=== PATIENT | female | born 1945 | race Two or more races ===

== ENCOUNTER 2021-10-22 13:15 | Inpatient (IN) | payer MEDICARE, OTHER ==
[~2021-10-22] VITALS: Ht 165.1 cm; Wt 57.2 kg
[2021-10-22] MEDS ORDERED: ATOR20TA PO (22:33)
[2021-10-22] MEDS ORDERED: BISA-79 RC (22:36)
[2021-10-22] MEDS ORDERED: ESOM40CA PO (22:37)
[2021-10-22] MEDS ORDERED: FLUO20CA42 PO (22:38)
[2021-10-22] MEDS ORDERED: MELA5TAB PO (22:40)
[2021-10-22] MEDS ORDERED: ARMO150T2 PO (22:41)
[2021-10-22] MEDS ORDERED: POLY17PO4 PO (22:44)
[2021-10-22] MEDS ORDERED: SENN-261 PO (22:46)
[2021-10-22] MEDS ORDERED: MONT10TA22 PO (22:47)
[2021-10-22 22:52] VITALS: BP 112/72
[2021-10-22] MEDS ORDERED: SUMA1TAB PO (22:52)
[2021-10-22] MEDS ORDERED: TAMS-12 PO (22:53)
[2021-10-22] MEDS ORDERED: TIMO5DRO31 OP (22:55)
[2021-10-22] MEDS ORDERED: VALA100026 PO (22:57)
[2021-10-22] MEDS ORDERED: CHOL200010 PO (23:00)
[2021-10-22] MEDS ORDERED: IBUP-1957 PO (23:01)
[2021-10-22] MEDS ORDERED: OLAN2.5T3 PO (23:15)
[2021-10-22] MEDS ORDERED: OLAN5TAB3 PO ×2 (23:15)
[2021-10-22] MEDS ORDERED: MAGNESIUM HYDROXIDE 30 ML UDC PO PRN (23:30)
[2021-10-22] MEDS ORDERED: Medication Not On Formulary EA (Melatonin 1 TAB) PO PRN (23:30)
[2021-10-22] MEDS ORDERED: MAG HYDROX/AL HYDROX/SIMETH 30 ML UDC PO PRN (23:30)
[2021-10-22] MEDS ORDERED: BISACODYL (5 MG) 5 MG TABLET.DR PO PRN (23:30)
[2021-10-22] MEDS ORDERED: IBUPROFEN 800 MG TABLET PO PRN (23:30)
[2021-10-22] MEDS ORDERED: BLOOD SUGAR DIAGNOSTIC 1 EACH STRIP IN ONE (23:30)
[2021-10-22] MEDS ORDERED: [UNRECOGNIZED DRUG - OTHER] PO PRN (23:30)
[2021-10-22] MEDS ORDERED: SUMATRIPTAN SUCC PO PRN (23:30)
[2021-10-22] MEDS ORDERED: LORAZEPAM 0.5 MG TABLET PO PRN (23:30)
[2021-10-22] MEDS ORDERED: NAPROXEN SOD PO PRN (23:30)
[2021-10-23 06:51] LABS: BASOPHILS % (AUTO) 0.9 % (0.0-2.0); EOSINOPHILS % (AUTO) 2.8 % (0.0-6.0); HEMATOCRIT 36 % (33-45); LYMPHOCYTES # (AUTO) 1.6 K/uL (0.8-4.8); LYMPHOCYTES % (AUTO) 31.4 % (20.0-44.0); MEAN CORPUSCULAR HGB CONC 33 g/dl (31.0-36.0); MEAN CORPUSCULAR VOLUME 93 fL (82-100); MONOCYTES # (AUTO) 0.5 K/uL (0.1-1.30); MONOCYTES % (AUTO) 10.5 % (2.0-12.0); NEUTROPHILS # (AUTO) 2.8 K/uL (1.8-8.9); NEUTROPHILS % (AUTO) 54.4 % (43.0-81.0); PLATELET COUNT (AUTO) 261 K/uL (150-450); RED BLOOD CELL COUNT(AUTO) 3.87 MIL/uL (4.0-5.2); WHITE BLOOD COUNT (AUTO) 5.1 K/uL (4.3-11.0)
[2021-10-23 07:12] LABS: CALCIUM, SERUM 9.6 mg/dL (8.5-10.1); CREATININE 0.7 mg/dL (0.6-1.3)
[2021-10-23 08:00] VITALS: BP 120/69
[2021-10-23] MEDS: CHOLECALCIFEROL 1,000 UNIT TABLET (VIT D3) PO SCH (08:03)
[2021-10-23] MEDS: VALACYCLOVIR HCL 500 MG TABLET PO SCH (08:03)
[2021-10-23] MEDS: SENNOSIDES 8.6 MG TABLET PO SCH ×2 (08:03→17:31)
[2021-10-23] MEDS: PANTOPRAZOLE 40 MG TABLET.DR PO SCH ×2 (08:03→17:32)
[2021-10-23] MEDS: POLYETHYLENE GLYCOL 3350 17 GM POWD.PACK PO SCH ×2 (08:04→17:32)
[2021-10-23] MEDS: ENSURE ENLIVE 237 ML LIQUID (VANILLA) PO SCH ×2 (09:00→17:30)
[2021-10-23] MEDS ORDERED: Medication Not On Formulary EA (Armodafinil (Nuvigil) 1 TAB) PO SCH (09:00)
[2021-10-23] MEDS: FLUOXETINE HCL 20 MG CAPSULE PO SCH (10:42)
[2021-10-23] MEDS ORDERED: LORAZEPAM 0.5 MG TABLET PO PRN (11:30)
[2021-10-23 16:00] VITALS: BP 135/72
[2021-10-23] MEDS: MONTELUKAST SODIUM (10MG) 10 MG TABLET PO SCH (17:31)
[2021-10-23] MEDS: ATORVASTATIN 10 MG TABLET PO SCH (17:33)
[2021-10-23] MEDS: TAMSULOSIN 0.4 MG CAP.SR.24H PO SCH (21:11)
[2021-10-23] MEDS: OLANZAPINE 5 MG TABLET PO SCH (21:11)
[2021-10-23] MEDS: TIMOLOL 0.5% SOLN OPHTH 5 ML BOTTLE EACHEYE SCH ×2 (21:11→22:00)
[2021-10-23] MEDS ORDERED: ASPIRIN/ACETAMINOPHEN/CAFFEINE 1 EACH TABLET PO PRN (22:30)
[2021-10-23] MEDS: TEMAZEPAM 7.5 MG CAPSULE PO PRN (22:46)
[2021-10-24] MEDS: PANTOPRAZOLE 40 MG TABLET.DR PO SCH ×2 (07:34→17:26)
[2021-10-24 08:00] VITALS: BP 101/68
[2021-10-24] MEDS: ENSURE ENLIVE 237 ML LIQUID (VANILLA) PO SCH ×2 (08:20→17:24)
[2021-10-24] MEDS: FLUOXETINE HCL 20 MG CAPSULE PO SCH (08:23)
[2021-10-24] MEDS: VALACYCLOVIR HCL 500 MG TABLET PO SCH (08:23)
[2021-10-24] MEDS: SENNOSIDES 8.6 MG TABLET PO SCH ×2 (08:23→17:26)
[2021-10-24] MEDS: CHOLECALCIFEROL 1,000 UNIT TABLET (VIT D3) PO SCH (08:23)
[2021-10-24] MEDS: POLYETHYLENE GLYCOL 3350 17 GM POWD.PACK PO SCH ×2 (08:23→17:00)
[2021-10-24 16:00] VITALS: BP 139/76
[2021-10-24] MEDS: MONTELUKAST SODIUM (10MG) 10 MG TABLET PO SCH (17:26)
[2021-10-24] MEDS: ATORVASTATIN 10 MG TABLET PO SCH (17:27)
[2021-10-24 20:00] VITALS: BP 130/70
[2021-10-24] MEDS: OLANZAPINE 5 MG TABLET PO SCH (21:05)
[2021-10-24] MEDS: TAMSULOSIN 0.4 MG CAP.SR.24H PO SCH (21:05)
[2021-10-24] MEDS: TIMOLOL 0.5% SOLN OPHTH 5 ML BOTTLE EACHEYE SCH (21:06)
[2021-10-25] MEDS: PANTOPRAZOLE 40 MG TABLET.DR PO SCH ×2 (06:48→17:13)
[2021-10-25 08:00] VITALS: BP 116/64
[2021-10-25] MEDS: ENSURE ENLIVE 237 ML LIQUID (VANILLA) PO SCH ×2 (08:50→17:13)
[2021-10-25] MEDS: SENNOSIDES 8.6 MG TABLET PO SCH ×2 (08:52→17:14)
[2021-10-25] MEDS: POLYETHYLENE GLYCOL 3350 17 GM POWD.PACK PO SCH ×2 (08:52→17:00)
[2021-10-25] MEDS: VALACYCLOVIR HCL 500 MG TABLET PO SCH (08:53)
[2021-10-25] MEDS: CHOLECALCIFEROL 1,000 UNIT TABLET (VIT D3) PO SCH (08:53)
[2021-10-25] MEDS: FLUOXETINE HCL 20 MG CAPSULE PO SCH (08:55)
[2021-10-25 16:00] VITALS: BP 127/89
[2021-10-25] MEDS: ATORVASTATIN 10 MG TABLET PO SCH (19:11)
[2021-10-25] MEDS: MONTELUKAST SODIUM (10MG) 10 MG TABLET PO SCH (19:11)
[2021-10-25 20:00] VITALS: BP 121/68
[2021-10-25] MEDS: OLANZAPINE 5 MG TABLET PO SCH (21:09)
[2021-10-25] MEDS: TAMSULOSIN 0.4 MG CAP.SR.24H PO SCH (21:09)
[2021-10-25] MEDS: TIMOLOL 0.5% SOLN OPHTH 5 ML BOTTLE EACHEYE SCH (21:15)
[2021-10-26] MEDS: ACETAMINOPHEN 325 MG TABLET PO PRN ×2 (05:08→10:54)
[2021-10-26 08:00] VITALS: BP 126/64
[2021-10-26] MEDS: FLUOXETINE HCL 20 MG CAPSULE PO SCH (08:28)
[2021-10-26] MEDS: VALACYCLOVIR HCL 500 MG TABLET PO SCH (08:29)
[2021-10-26] MEDS: CHOLECALCIFEROL 1,000 UNIT TABLET (VIT D3) PO SCH (08:29)
[2021-10-26] MEDS: PANTOPRAZOLE 40 MG TABLET.DR PO SCH ×2 (08:29→17:12)
[2021-10-26] MEDS: SENNOSIDES 8.6 MG TABLET PO SCH ×3 (08:29→17:00)
[2021-10-26] MEDS: POLYETHYLENE GLYCOL 3350 17 GM POWD.PACK PO SCH ×3 (08:29→17:00)
[2021-10-26] MEDS: ENSURE ENLIVE 237 ML LIQUID (VANILLA) PO SCH ×2 (08:29→17:12)
[2021-10-26] MEDS: ATORVASTATIN 10 MG TABLET PO SCH (17:12)
[2021-10-26] MEDS: MONTELUKAST SODIUM (10MG) 10 MG TABLET PO SCH (17:12)
[2021-10-26] MEDS: IBUPROFEN 400 MG TABLET PO PRN (17:16)
[2021-10-26 19:43] VITALS: BP 142/63
[2021-10-26] MEDS: TIMOLOL 0.5% SOLN OPHTH 5 ML BOTTLE EACHEYE SCH (21:06)
[2021-10-26] MEDS: TAMSULOSIN 0.4 MG CAP.SR.24H PO SCH (21:06)
[2021-10-26] MEDS: OLANZAPINE 5 MG TABLET PO SCH (21:06)
[2021-10-27] MEDS: PANTOPRAZOLE 40 MG TABLET.DR PO SCH ×2 (06:31→17:29)
[2021-10-27 08:00] VITALS: BP 134/65
[2021-10-27] MEDS: ENSURE ENLIVE 237 ML LIQUID (VANILLA) PO SCH ×2 (08:16→17:35)
[2021-10-27] MEDS: CHOLECALCIFEROL 1,000 UNIT TABLET (VIT D3) PO SCH (08:21)
[2021-10-27] MEDS: FLUOXETINE HCL 20 MG CAPSULE PO SCH (08:21)
[2021-10-27] MEDS: POLYETHYLENE GLYCOL 3350 17 GM POWD.PACK PO SCH ×2 (08:22→17:00)
[2021-10-27] MEDS: SENNOSIDES 8.6 MG TABLET PO SCH ×2 (08:22→17:00)
[2021-10-27] MEDS: VALACYCLOVIR HCL 500 MG TABLET PO SCH (08:22)
[2021-10-27] MEDS: ATORVASTATIN 10 MG TABLET PO SCH (17:29)
[2021-10-27] MEDS: MONTELUKAST SODIUM (10MG) 10 MG TABLET PO SCH (17:29)
[2021-10-27 20:00] VITALS: BP 124/63
[2021-10-27] MEDS: TIMOLOL 0.5% SOLN OPHTH 5 ML BOTTLE EACHEYE SCH (21:05)
[2021-10-27] MEDS: OLANZAPINE 5 MG TABLET PO SCH (21:07)
[2021-10-27] MEDS: TAMSULOSIN 0.4 MG CAP.SR.24H PO SCH (21:07)
[2021-10-28] MEDS: IBUPROFEN 400 MG TABLET PO PRN ×2 (06:59→13:14)
[2021-10-28] MEDS: PANTOPRAZOLE 40 MG TABLET.DR PO SCH ×2 (07:30→17:05)
[2021-10-28 08:00] VITALS: BP 114/56
[2021-10-28] MEDS: VALACYCLOVIR HCL 500 MG TABLET PO SCH (08:51)
[2021-10-28] MEDS: FLUOXETINE HCL 20 MG CAPSULE PO SCH (08:51)
[2021-10-28] MEDS: CHOLECALCIFEROL 1,000 UNIT TABLET (VIT D3) PO SCH (08:51)
[2021-10-28] MEDS: SENNOSIDES 8.6 MG TABLET PO SCH ×2 (08:52→17:00)
[2021-10-28] MEDS: ENSURE ENLIVE 237 ML LIQUID (VANILLA) PO SCH ×2 (08:52→17:05)
[2021-10-28] MEDS: POLYETHYLENE GLYCOL 3350 17 GM POWD.PACK PO SCH ×2 (08:52→17:00)
[2021-10-28 16:00] VITALS: BP 144/75
[2021-10-28] MEDS ORDERED: BENZONATATE 100 MG CAPSULE PO PRN (16:30)
[2021-10-28] MEDS: ATORVASTATIN 10 MG TABLET PO SCH (17:05)
[2021-10-28] MEDS: MONTELUKAST SODIUM (10MG) 10 MG TABLET PO SCH (17:05)
[2021-10-28 20:00] VITALS: BP 139/66
[2021-10-28 20:35] VITALS: BP 139/66
[2021-10-28] MEDS: TAMSULOSIN 0.4 MG CAP.SR.24H PO SCH (21:23)
[2021-10-28] MEDS: TIMOLOL 0.5% SOLN OPHTH 5 ML BOTTLE EACHEYE SCH (21:23)
[2021-10-28] MEDS: OLANZAPINE 5 MG TABLET PO SCH (21:24)
[2021-10-28] MEDS: TEMAZEPAM 7.5 MG CAPSULE PO PRN (23:44)
[2021-10-28] MEDS: ACETAMINOPHEN 325 MG TABLET PO PRN (23:51)
[2021-10-29] MEDS: GUAIFENESIN/D-METHORPHAN HB 5 ML UDC PO PRN ×3 (00:22→18:43)
[2021-10-29] MEDS: PANTOPRAZOLE 40 MG TABLET.DR PO SCH ×2 (06:44→16:32)
[2021-10-29 06:49] LABS: CALCIUM, SERUM 8.8 mg/dL (8.5-10.1); CREATININE 0.8 mg/dL (0.6-1.3); POTASSIUM 3.8 mmol/L (3.5-5.1)
[2021-10-29 07:00] LABS: BASOPHILS % (AUTO) 0.6 % (0.0-2.0); EOSINOPHILS % (AUTO) 0.7 % (0.0-6.0); HEMATOCRIT 33 % (33-45); HEMOGLOBIN 11.2 g/dL (11.5-14.8); LYMPHOCYTES # (AUTO) 0.8 K/uL (0.8-4.8); LYMPHOCYTES % (AUTO) 16.9 % (20.0-44.0); MEAN CORPUSCULAR HGB CONC 33 g/dl (31.0-36.0); MEAN CORPUSCULAR VOLUME 93 fL (82-100); MONOCYTES # (AUTO) 0.6 K/uL (0.1-1.30); MONOCYTES % (AUTO) 12.8 % (2.0-12.0); NEUTROPHILS # (AUTO) 3.2 K/uL (1.8-8.9); PLATELET COUNT (AUTO) 242 K/uL (150-450); RED BLOOD CELL COUNT(AUTO) 3.58 MIL/uL (4.0-5.2); WHITE BLOOD COUNT (AUTO) 4.6 K/uL (4.3-11.0)
[2021-10-29 08:00] VITALS: BP 138/69
[2021-10-29] MEDS: CHOLECALCIFEROL 1,000 UNIT TABLET (VIT D3) PO SCH (08:08)
[2021-10-29] MEDS: FLUOXETINE HCL 20 MG CAPSULE PO SCH (08:08)
[2021-10-29] MEDS: VALACYCLOVIR HCL 500 MG TABLET PO SCH (08:10)
[2021-10-29] MEDS: SENNOSIDES 8.6 MG TABLET PO SCH ×2 (08:15→16:05)
[2021-10-29] MEDS: POLYETHYLENE GLYCOL 3350 17 GM POWD.PACK PO SCH ×2 (08:15→16:05)
[2021-10-29] MEDS: ENSURE ENLIVE 237 ML LIQUID (VANILLA) PO SCH ×2 (08:15→17:21)
[2021-10-29] MEDS: IBUPROFEN 400 MG TABLET PO PRN (09:07)
[2021-10-29 16:00] VITALS: BP 105/54
[2021-10-29] MEDS: LORATADINE 10 MG TABLET PO SCH (16:32)
[2021-10-29] MEDS: MONTELUKAST SODIUM (10MG) 10 MG TABLET PO SCH (17:17)
[2021-10-29] MEDS: ATORVASTATIN 10 MG TABLET PO SCH (17:17)
[2021-10-29 20:00] VITALS: BP 139/67
[2021-10-29] MEDS: TAMSULOSIN 0.4 MG CAP.SR.24H PO SCH (21:30)
[2021-10-29] MEDS: TIMOLOL 0.5% SOLN OPHTH 5 ML BOTTLE EACHEYE SCH (21:30)
[2021-10-29] MEDS: OLANZAPINE 5 MG TABLET PO SCH (21:30)
[2021-10-30] MEDS: PANTOPRAZOLE 40 MG TABLET.DR PO SCH ×2 (06:31→17:06)
[2021-10-30 08:00] VITALS: BP 124/64
[2021-10-30] MEDS: ENSURE ENLIVE 237 ML LIQUID (VANILLA) PO SCH ×2 (08:04→17:07)
[2021-10-30] MEDS: FLUOXETINE HCL 20 MG CAPSULE PO SCH (08:05)
[2021-10-30] MEDS: LORATADINE 10 MG TABLET PO SCH (08:05)
[2021-10-30] MEDS: CHOLECALCIFEROL 1,000 UNIT TABLET (VIT D3) PO SCH (08:05)
[2021-10-30] MEDS: SENNOSIDES 8.6 MG TABLET PO SCH ×2 (08:07→17:00)
[2021-10-30] MEDS: VALACYCLOVIR HCL 500 MG TABLET PO SCH (08:07)
[2021-10-30] MEDS: POLYETHYLENE GLYCOL 3350 17 GM POWD.PACK PO SCH ×2 (08:07→17:00)
[2021-10-30] MEDS ORDERED: MENTHOL/CETYLPYRD (CEPACOL) 1 LOZ LOZENGE PO PRN (11:30)
[2021-10-30 16:00] VITALS: BP 110/76
[2021-10-30] MEDS: MONTELUKAST SODIUM (10MG) 10 MG TABLET PO SCH (17:06)
[2021-10-30] MEDS: ATORVASTATIN 10 MG TABLET PO SCH (17:07)
[2021-10-30] MEDS: GUAIFENESIN/D-METHORPHAN HB 5 ML UDC PO PRN (19:50)
[2021-10-30 20:00] VITALS: BP 141/64
[2021-10-30] MEDS: OLANZAPINE 5 MG TABLET PO SCH (21:15)
[2021-10-30] MEDS: TAMSULOSIN 0.4 MG CAP.SR.24H PO SCH (21:15)
[2021-10-30] MEDS: TIMOLOL 0.5% SOLN OPHTH 5 ML BOTTLE EACHEYE SCH (21:16)
[2021-10-31 08:00] VITALS: BP 115/69
[2021-10-31] MEDS: CHOLECALCIFEROL 1,000 UNIT TABLET (VIT D3) PO SCH (08:04)
[2021-10-31] MEDS: PANTOPRAZOLE 40 MG TABLET.DR PO SCH (08:04)
[2021-10-31] MEDS: LORATADINE 10 MG TABLET PO SCH (08:04)
[2021-10-31] MEDS: VALACYCLOVIR HCL 500 MG TABLET PO SCH (08:04)
[2021-10-31] MEDS: ENSURE ENLIVE 237 ML LIQUID (VANILLA) PO SCH (08:06)
[2021-10-31] MEDS: FLUOXETINE HCL 20 MG CAPSULE PO SCH (08:06)
[2021-10-31] MEDS: POLYETHYLENE GLYCOL 3350 17 GM POWD.PACK PO SCH (08:16)
[2021-10-31] MEDS: SENNOSIDES 8.6 MG TABLET PO SCH (08:17)
== END 2021-10-31 11:30 | disposition home health service (06) | DRG 885 ==
LOC: GPS 21:44
PROVIDERS: ADMIT Psychiatry & Neurology Psychiatry; ATTEND Internal Medicine
DX: F31.64 Bipolar disorder, current episode mixed, severe, with psychotic features (principal); U07.1 COVID-19; J98.11 Atelectasis; N39.41 Urge incontinence; Z91.81 History of falling; M62.81 Muscle weakness (generalized); Z88.2 Allergy status to sulfonamides
CPT/HCPCS: 36415; 71045-TC; 80048-TC; 80061-TC; 82962-TC; 85025-TC; 87081-TC; 97116-TC; 97530-TC